=== PATIENT | female | born 1980 | race Caucasian/White ===

== ENCOUNTER 2023-11-21 19:05 | Emergency (ER) | payer BC ==
[~2023-11-21] VITALS: Ht 165.1 cm; Wt 121.6 kg
[2023-11-21] MEDS ORDERED: ONDANSETRON HCL INJ 2MG/ML 2ML 2 MG/ML VIAL IV STA (19:46)
[2023-11-21] MEDS ORDERED: SODIUM CHLORIDE 0.9% 1000ML 1,000 ML IV ONE (20:00)
[2023-11-21 20:09] LABS: BASOPHILS # (AUTO) 0.1 (0.0-0.1); BASOPHILS % 0.8 % (0.0-1.0); EOSINOPHILS # (AUTO) 0.1 (0.0-0.4); EOSINOPHILS % 1.1 % (0.0-6.0); HEMATOCRIT 41.7 % (34.2-44.1); HEMOGLOBIN 13.7 g/dL (12.0-16.0); LYMPHOCYTES # (AUTO) 2.7 (1.0-3.2); LYMPHOCYTES % 36.7 % (18.0-39.1); MEAN CORPUSCULAR HEMOGLOBIN 29.9 pg (28-32); MEAN CORPUSCULAR HGB CONC 32.9 g/dL (31-35); MONOCYTES # (AUTO) 0.5 (0.2-0.8); MONOCYTES % 6.1 % (4.4-11.3); NEUTROPHILS # (AUTO) 4.1 (2.1-6.9); NEUTROPHILS % 55.2 % (38.7-80.0); PLATELET COUNT 245 x10e3/uL (140-360); RED BLOOD COUNT 4.58 x10e6/uL (3.6-5.1); RED CELL DISTRIBUTION WIDTH 13.4 % (11.7-14.4); WHITE BLOOD COUNT 7.35 x10e3/uL (4.8-10.8)
[2023-11-21 20:27] LABS: ALBUMIN 4.2 g/dL (3.5-5.0); ALBUMIN/GLOBULIN RATIO 1.2 (0.8-2.0); ANION GAP 15.8 mmol/L (8-16); BILIRUBIN,TOTAL 0.6 mg/dL (0.2-1.2); CALCIUM 9.6 mg/dL (8.4-10.2); CREATININE, SERUM 0.83 mg/dL (0.57-1.11); LIPASE 21 U/L (8-78); POTASSIUM 3.8 mmol/L (3.5-5.1); TOTAL PROTEIN 7.6 g/dL (6.5-8.1)
[2023-11-21] MEDS ORDERED: IOPAMIDOL 370 MG/ML 100 ML INFUS..BTL INJ ONE ×2 (20:37→21:00)
[2023-11-21 20:52] LABS: BILIRUBIN,URINE NEGATIVE (NEGATIVE); CLARITY,URINE SL CLOUDY (CLEAR); COLOR,URINE YELLOW (YELLOW); GLUCOSE, URINE NEGATIVE (NEGATIVE); KETONES,URINE NEGATIVE (NEGATIVE); LEUKOCYTE ESTERASE ,URINE NEGATIVE (NEGATIVE); NITRITE,URINE NEGATIVE (NEGATIVE); PH,URINE 6 (5 - 7); PROTEIN,URINE DIPSTICK NEGATIVE (NEGATIVE); URINE UROBILINOGEN 0.2 mg/dL (0.2 - 1)
[2023-11-21 21:02] LABS: BACTERIA,URINE MODERATE /HPF; EPITHELIAL CELLS,URINE FEW /LPF; MUCUS,URINE MODERATE (RARE); RBC,URINE 0-5 /HPF (0-5)
[2023-11-21] MEDS ORDERED: PANTOPRAZOLE SO40 MG PO (21:40)
[2023-11-21] MEDS ORDERED: DICYCLOMINE HCL20 MG PO (21:40)
[2023-11-21] MEDS ORDERED: ONDANSETRON ODT4 MG SL (21:40)
[2023-11-21] MEDS ORDERED: DICYCLOMINE HCL 20 MG/2 ML VIAL IM ONE (21:45)
[2023-11-21] MEDS ORDERED: DIFLUCAN100 MG PO (21:47)
[2023-11-21 22:10] VITALS: O2SAT 100
== END 2023-11-21 22:19 | disposition home or self-care (01) ==
LOC: ER 19:10
DX: R11.2 Nausea with vomiting, unspecified (principal); R10.13 Epigastric pain; R10.32 Left lower quadrant pain; R10.33 Periumbilical pain; E03.9 Hypothyroidism, unspecified; Z98.84 Bariatric surgery status
CPT/HCPCS: 36415; 74177; 80053; 81001; 83690; 84702; 85025; 99284; C9113; J0500; J2405; J7030; Q9967

== ENCOUNTER 2025-07-10 19:55 | Emergency (ER) | payer BC ==
[~2025-07-10] VITALS: Ht 165.1 cm; Wt 110.7 kg
[~2025-07-10 19:55] MED LIST: DICYCLOMINE HCL20 MG PO; DIFLUCAN100 MG PO; ONDANSETRON ODT4 MG SL; PANTOPRAZOLE SO40 MG PO
[2025-07-10 19:58] VITALS: PULSE 70; RESP 18; TEMP 97.8
[2025-07-10] MEDS ORDERED: MACROBID 100 M100 MG PO (20:24)
[2025-07-10 20:26] VITALS: BP 137/85; PULSE 70; RESP 18; TEMP 97.8; O2SAT 98
== END 2025-07-10 20:29 | disposition home or self-care (01) ==
LOC: FSED 19:58
DX: R30.0 Dysuria (principal); N39.0 Urinary tract infection, site not specified; E03.9 Hypothyroidism, unspecified; Z98.84 Bariatric surgery status
CPT/HCPCS: 81003; 99283